=== PATIENT | female | born 1980 | race Caucasian/White ===

== ENCOUNTER 2017-08-03 01:16 | Emergency (ER) | payer SELFPAY ==
[2017-08-03 01:39] VITALS: BP 121/81; PULSE 100; RESP 20; TEMP 98; O2SAT 96
[2017-08-03] MEDS ORDERED: Lidocaine 2% w Epi 1:100,000 Inj IJ ONE (02:29)
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
== END 2017-08-03 03:40 | disposition home or self-care (01) ==
LOC: C.ER 01:16
DX: S01.511A Laceration without foreign body of lip, initial encounter (principal); S00.83XA Contusion of other part of head, initial encounter; Y04.0XXA Assault by unarmed brawl or fight, initial encounter; Y92.410 Unspecified street and highway as the place of occurrence of the external cause

== ENCOUNTER 2018-06-21 23:19 | Emergency (ER) | payer OTHER | END 2018-06-21 23:35 | disposition left against medical advice (07) | LOC: C.ER 23:19 | DX: Z02.89 Encounter for other administrative examinations (principal); Z00.00 Encounter for general adult medical examination without abnormal findings ==

== ENCOUNTER 2018-07-01 09:10 | Emergency (ER) | payer OTHER ==
[2018-07-01 09:22] VITALS: BMI 34.2
[2018-07-01 09:33] VITALS: BP 131/84; PULSE 110; RESP 18; TEMP 97.8; O2SAT 100
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
== END 2018-07-01 10:14 | disposition home or self-care (01) ==
LOC: C.ER 09:10
DX: S83.91XA Sprain of unspecified site of right knee, initial encounter (principal); W01.0XXA Fall on same level from slipping, tripping and stumbling without subsequent striking against object, initial encounter; Y93.02 Activity, running
CPT/HCPCS: 73562; 96372; 99285; J1885

== ENCOUNTER → 2018-07-21 21:23 | Emergency (ER) | payer SELFPAY ==
[2018-07-21 21:24] VITALS: BMI 34.2
== END | disposition left against medical advice (07) ==
LOC: C.ER 21:23
DX: Z02.89 Encounter for other administrative examinations (principal); J45.909 Unspecified asthma, uncomplicated

== ENCOUNTER 2018-08-09 02:39 | Emergency (ER) | payer SELFPAY ==
[2018-08-09 02:39] VITALS: BMI 34.2
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
[2018-08-09 06:44] VITALS: BP 126/79; PULSE 89; RESP 18; TEMP 98.2; O2SAT 98
== END 2018-08-09 06:44 | disposition home or self-care (01) ==
LOC: C.ER 02:39
DX: F10.129 Alcohol abuse with intoxication, unspecified (principal); Y90.9 Presence of alcohol in blood, level not specified